=== PATIENT | female | born 1995 | race Caucasian/White ===

== ENCOUNTER 2019-04-11 15:03 | Outpatient (RCR) | payer OTHER, SELFPAY ==
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
--- NOTE | 2019-04-25 13:06 | PCPTNOTE ---
patient called and cancelled appt today. YURY
== END 2019-04-28 17:00 | disposition home or self-care (01) ==
LOC: CHSPT 15:03
DX: S32.424 Nondisplaced fracture of posterior wall of right acetabulum (principal)
CPT/HCPCS: 97014; 97110; 97161; 97530; G0283

== ENCOUNTER 2021-07-01 14:08 | Emergency (ER) | payer OTHER, SELFPAY ==
--- NOTE | ~2021-07-01 | XR_ITS ---
EXAM: XR abdomen/kub 1V HISTORY: constipation x 3 wks COMPARISON: None available FINDINGS: Clear lung bases. Normal bowel gas pattern. No organomegaly. No abnormal abdominal calcifi cation. Regional bones and soft tissues normal for age. IMPRESSION: No radiographic evidence of obstruction or ileus. Reviewed, dictated and finalized at location K.
--- NOTE | ~2021-07-01 | XR_ITS ---
EXAMINATION: XR chest 1V portable Exam Date/Time: 07/01/2021 16:45 CDT CLINICAL HISTORY: cough with SOB x 3 wks Comparison: None available. RESULT: Lines, tubes, and devices: None. Lungs and pleura: Clear. Cardiomediastinal silhouette: Normal cardiomediastinal silhouette. Other: No acute osseous or upper abdominal finding. IMPRESSION: No acute cardiopulmonary process Reviewed, dictated and finalized at location K.
[2021-07-01 14:19] VITALS: BP 120/76; PULSE 112; RESP 16; TEMP 36.6; O2SAT 100
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
[2021-07-01 14:47] LABS: Basophils Absolute Auto 0.05 K/mm3 (0.00-0.10); Basophils Percent Auto 0.9 % (0.0-1.0); Eosinophils Absolute Auto 0.05 K/mm3 (0.02-0.50); Eosinophils Percent Auto 0.9 % (1.0-6.0); Hematocrit 31.9 % (35.0-49.0); Hemoglobin 9.9 g/dL (12.0-15.0); Immature Granulocyte Absolute 0.02 K/mm3 (0.00-0.00); Immature Granulocyte Percent A 0.4 % (0.0-0.0); Lymphocytes Absolute Auto 2.08 K/mm3 (1.10-4.50); Lymphocytes Percent Auto 38.4 % (18.0-42.0); Mean Corpuscular Hemoglobin 25.3 pg (27.0-31.0); Mean Corpuscular Volume 81.4 fL (78.0-102.0); Mean Platelet Volume 8.3 fl (9.2-11.8); Monocytes Absolute Auto 0.31 K/mm3 (0.10-0.90); Monocytes Percent Auto 5.7 % (2.0-11.0); Neutrophils Absolute Auto 2.9 K/mm3 (1.7-7.2); Neutrophils Percent Auto 53.7 % (50.0-70.0); Platelet Count Result 404 K/mm3 (150-420); Red Blood Count 3.92 M/mm3 (4.20-5.40); Red Cell Distribution Width 19.1 % (11.6-14.4); White Blood Count 5.4 K/mm3 (4.8-10.8)
[2021-07-01 15:00] LABS: Prothrombin Time 10.9 Seconds (9.50-12.10)
[2021-07-01 15:08] LABS: Lactic Acid Reflex 1.3 mmol/L (0.4-2.0)
[2021-07-01 15:12] LABS: Alanine Aminotransferase 29 U/L (14-59); Albumin Level 3.3 g/dL (3.4-5.0); Alkaline Phosphatase 142 U/L (46-116); Anion Gap 5 mmol/L (8-16); Aspartate Amino Transferase 24 U/L (15-37); Bilirubin,Total 0.4 mg/dL (0.00-1.00); Blood Urea Nitrogen 16 mg/dL (7-18); Calcium 8.5 mg/dL (8.5-10.1); Carbon Dioxide 30 mmol/L (21-32); Chloride 102 mmol/L (98-108); Estimated Glomerular Filt Rate > 60; Glucose 110 mg/dL (70-99); Lipase 117 U/L (73-393); Osmolality Calculated 286 mOsm/kg (285-295); Potassium 3.9 mmol/L (3.5-5.1); Sodium 137 mmol/L (136-145); Total Protein 7.3 g/dL (6.4-8.2)
[2021-07-01] MEDS: BISACODYL 10 MG SUPPOSITORY RECTAL (15:12)
--- NOTE | 2021-07-01 15:53 | PC.NURSE ---
patient back in room from bathroom. patient successfully had large bowl movement
[2021-07-01 16:08] LABS: Pregnancy On Board Control Positive; Urine Pregnancy Test Negative
[2021-07-01 17:22] VITALS: BP 122/81; PULSE 96; RESP 16; TEMP 36.9; O2SAT 100
== END 2021-07-01 17:25 | disposition home or self-care (01) ==
PROVIDERS: Emergency Provider Internal Medicine Critical Care Medicine
DX: R53.1 Weakness (principal); F41.9 Anxiety disorder, unspecified; D64.9 Anemia, unspecified
CPT/HCPCS: 36415; 71045; 74018; 80053; 81025; 83605; 83690; 84443; 84484; 85025; 85610; 99284; A9270

== ENCOUNTER 2021-07-20 23:26 | Emergency (ER) | payer OTHER, SELFPAY ==
[2021-07-20 23:34] VITALS: BP 119/77; PULSE 114; RESP 16; TEMP 37; O2SAT 98
[2021-07-21 00:29] LABS: Bilirubin Urine Negative (Negative); Color Urine Yellow (Yellow); Glucose Urine UA Negative (Negative); Ketones Urine Negative (Negative); Leukocyte Esterase Ur 1+ (Negative); Nitrate Urine Negative (Negative); Protein Urine Negative (Negative); Specific Grav Ur 1.025 (1.010-1.020); pH Urine 6.5 (5.0-8.0)
--- NOTE | 2021-07-21 00:35 | ED.GENADULT ---
HPI - General Adult General Chief complaint: Unspecified Stated complaint: Vaginal Discharge Time Seen by Provider: 07/20/21 23:30 Source: patient and RN notes reviewed Mode of arrival: ambulatory Limitations: no limitations History of Present Illness complaint: vaginal d/c. pt is concerned about GC and Chlamydia exposure. Onset (ago): day(s) (4) Location: pelvis Radiation: non-radiation Severity: mild Severity scale (1-10): 3 Quality: other (chronic back pain. no acute fever) Pain Consistency: constant Relieving factors: none Exacerbating factors: none Treatments prior to arrival: none Related Data Home Medications Medication Instructions Recorded Confirmed naloxone 4 mg/actuation nasal 4 mg intranasal DAILY 07/20/21 07/20/21 spray (Narcan) Allergies Allergy/AdvReac Type Severity Reaction Status Date / Time Penicillins Allergy Unknown unknown Verified 07/20/21 23:39 Review of Systems Review of Systems: All systems reviewed & are unremarkable except as noted in HPI and below PMFSH Past Medical History Medical History BV (bacterial vaginosis) Opiate addiction STD exposure UTI (urinary tract infection) Exam Const: General: cooperative and no acute distress Nutritional Appearance: average body habitus Orientation/consciousness: patient oriented x3 Limitations: no limitations HENMT: Head: normal to inspection, normocephalic and atraumatic Ears: hearing grossly normal bilaterally, external ears normal and TM's normal bilaterally General nose exam: Normal external nose present and Normal nares present Face and sinus: normal facial exam and sinuses nontender Mouth: Yes Normal oral and palatal mucosa present, Yes lip normal, Yes tongue normal, Yes oropharynx normal and Yes moist mucous membranes Throat: posterior oropharynx normal Eyes: General: appearance normal, both eyes and all related structures Periorbital: periorbital findings normal Eyelids: eyelids normal Conjunctivae: conjunctivae normal Sclera: sclerae normal Cornea: corneas normal Pupils: Equal, round and reactive pupils present and Pupils normal by confrontation EOM: EOMs intact bilaterally Neck: Neck: normal visual inspection, full ROM, no lymphadenopathy and no meningeal signs Chest: Chest palpation & inspection: normal inspection of the chest Resp: Effort & Inspection: normal respiratory effort and able to speak in complete sentences Auscultation: clear to auscultation bilaterally Cardio: Jugular venous distension: no JVD Rate: regular rate Rhythm: regular rhythm Peripheral pulses: Peripheral pulses 2+ throughout GI: Inspection: normal to inspection GI Palp: No abdominal tenderness and Yes Soft to palpation Auscultation: normal bowel sounds Back/Spine/Pelvis: Back: no CVA tenderness Cervical Spine: normal cervical lordosis and cervical ROM normal Thoracic/Lumbar Spine: thoraco-lumbar ROM normal Pelvis: no pain with anterior-posterior compression Skin: General skin exam: normal color, no rashes or lesions noted and turgor normal Rashes: no rashes Wounds: no wounds Hair: normal Nails: normal Neuro: General: oriented to person and patient oriented x3 Cranial nerves: Yes CN's II-XII intact bilaterally, Yes Facial sensation intact/muscles of mastication intact, Yes Intact sense of smell present, Yes Equal, round and reactive pupils present, Yes Normal accommodation reflex present, Yes Bilaterally intact EOM present, Yes Normal facial strength present, Yes Normal gag reflex present and Yes Normal hearing present Cognition (Neuro): normal cognition Speech: normal speech Gait exam (Neuro): Normal gait present Motor exam (neuro): 5/5 motor strength present throughout Sensory Exam: normal sensation Comatose Patient: corneal reflex present Extrem: General: full ROM and capillary refill normal Psych: Appearance: grossly normal and well kempt Mental Status: mental status gr
[2021-07-21 00:36] LABS: Add Urine Microscopic? YES; Appearance Urine Turbid (Clear); Bacteria Urine 4+ /hpf; Blood Urine Trace-Intact (Negative); RBC Urine 0-2 /hpf (0-2)
[2021-07-21] MEDS: ACETAMINOPHEN 325 MG TABLET 650 MG PO (01:06)
[2021-07-21] MEDS: LIDOCAINE HCL 2% PF INJ 5 ML VIAL (01:06)
[2021-07-21] MEDS: cefTRIAXone 1 GM VIAL IM (01:06)
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
== END 2021-07-21 01:29 | disposition home or self-care (01) ==
PROVIDERS: Emergency Provider Emergency Medicine
DX: N39.0 Urinary tract infection, site not specified (principal); Z20.2 Contact with and (suspected) exposure to infections with a predominantly sexual mode of transmission; N76.0 Acute vaginitis
CPT/HCPCS: 81001; 87491; 87591; 96372; 99283; A9270; J0696

== ENCOUNTER 2021-08-31 23:38 | Emergency (ER) | payer OTHER, SELFPAY ==
--- NOTE | ~2021-08-31 | XR_ITS ---
EXAMINATION: XR forearm LT 2V DATE: 09/01/2021 01:16 INDICATION: Left forearm laceration. TECHNIQUE: 2 views of left forearm were obtained. COMPARISON: None. FINDINGS: Bone alignment is normal. No fracture. Joint spaces are well maintained. Bandage material i s noted around the forearm. There is soft tissue swelling of the hand. IMPRESSION: 1. No fracture or radiopaque foreign body. Reviewed, dictated and finalized at location A.
[2021-08-31 23:53] VITALS: BP 124/99; PULSE 129; RESP 22; TEMP 36.6; O2SAT 98
[2021-09-01] MEDS: LIDOCAINE HCL 2% PF INJ 5 ML VIAL INFILTRATE (00:04)
[2021-09-01] MEDS: cefTRIAXone 1 GM, LIDOCAINE HCL 1% LOCAL INJ 2.1 ML IM (01:37)
[2021-09-01] MEDS: ACETAMINOPHEN 325 MG TABLET 650 MG PO (01:38)
--- NOTE | 2021-09-01 01:49 | ED.UPPEXIN ---
HPI - Extremity Injury (Upper) General Chief Complaint: Extremity Injury, Lower Stated Complaint: arm cut Time Seen by Provider: 08/31/21 23:42 Source: patient and RN notes reviewed Mode of arrival: ambulatory Limitations: no limitations History of Present Illness complaint: injury to: left and forearm (10 cm laceration.) Onset (ago): hour(s) (1) Other Extremity Injury: Left: forearm Other injuries: none Place: home Severity: moderate Severity scale (1-10): 6 Relieving factors: none Exacerbating factors: movement of extremity Context: laceration Associated symptoms: denies other symptoms Treatments prior to arrival: bandage Related Data Allergies Allergy/AdvReac Type Severity Reaction Status Date / Time Penicillins Allergy Unknown unknown Verified 08/31/21 23:51 Review of Systems Review of Systems: All systems reviewed & are unremarkable except as noted in HPI and below Constitutional: Constitutional: Reports no additional constitutional complaints Eyes: Eyes: Reports no additional eye complaints ENT: Reports system reviewed and no additional complaints, except as documented Cardiovascular: Cardiovascular: Reports no additional cardiovascular complaints Respiratory: Respiratory: Reports no additional respiratory complaints Gastrointestinal: Gastrointestinal: Reports no additional gastrointestinal complaints Genitourinary: Genitourinary: Reports no additional female genitourinary complaints Musculoskeletal: Musculoskeletal: Reports no additional musculoskeletal complaints Integumentary/Breasts: Skin/Breast: Reports system reviewed and no additional complaints, except as docu Neurologic: Reports system reviewed and no additional complaints, except as documented Psychiatric: Psychiatric: Reports no additional psychiatric complaints Endocrine: Endocrine: Reports no additional endocrine complaints Hematologic/Lymphatic: Hematologic/Lymphatic: Reports no additional hematologic/lymphatic complaints Allergic/Immunologic: Allergic/Immunologic: Reports no additional allergic/immunologic complaints PMFSH Past Medical History Medical History BV (bacterial vaginosis) Laceration of forearm, left Opiate addiction STD exposure UTI (urinary tract infection) Exam Const: General: healthy appearing and no acute distress Nutritional Appearance: well nourished Orientation/consciousness: patient oriented x3 Limitations: no limitations HENMT: Head: normal to inspection Ears: external ears normal, TM's normal bilaterally and EAC's normal General nose exam: Normal external nose present and Normal nares present Face and sinus: normal facial exam and sinuses nontender Mouth: Yes Normal oral and palatal mucosa present and Yes moist mucous membranes Teeth and gingiva: dentition normal Throat: posterior oropharynx normal Eyes: Conjunctivae: conjunctivae normal Pupils: Equal, round and reactive pupils present EOM: EOMs intact bilaterally Neck: Neck: normal visual inspection, no lymphadenopathy and no meningeal signs Chest: Chest palpation & inspection: normal inspection of the chest Resp: Effort & Inspection: normal respiratory effort Auscultation: clear to auscultation bilaterally Cardio: Rate: regular rate Rhythm: regular rhythm GI: GI Palp: Yes Soft to palpation and No Tenderness to palpation present (GI) Auscultation: normal bowel sounds : General: Yes bladder normal to palpation and Yes no CVA tenderness Bimanual exam- vagina & uterus: bladder normal to palpation Back/Spine/Pelvis: Back: no CVA tenderness Skin: General skin exam: normal color Rashes: no rashes Wounds: no wounds Neuro: General: patient oriented x3, moves all extremities, no meningeal signs, no focal motor deficits and CN's II-XI intact bilaterally Cranial nerves: Yes Equal, round and reactive pupils present and Yes Nystagmus not present Speech: normal speech Gait exam (Neuro)
[2021-09-01 02:39] VITALS: BP 117/81; PULSE 91; RESP 18; O2SAT 98
== END 2021-09-01 02:40 | disposition home or self-care (01) ==
PROVIDERS: Emergency Provider Emergency Medicine
DX: S51.812A Laceration without foreign body of left forearm, initial encounter (principal); W45.8XXA Other foreign body or object entering through skin, initial encounter
CPT/HCPCS: 12004; 73090; 96372; 99283; A9270; J0696

== ENCOUNTER 2022-06-05 17:23 | Emergency (ER) | payer OTHER, SELFPAY ==
[2022-06-05 17:23] VITALS: BP 121/90; PULSE 100; RESP 20; TEMP 36.6; O2SAT 97
[2022-06-05 17:30] VITALS: BP 132/103
[2022-06-05] MEDS: MAGNESIUM SULF 4 GM/WATER100ML 4 GM/100 ML BAG IVPB (17:50)
[2022-06-05 17:58] LABS: Basophils Absolute Auto 0.02 K/mm3 (0.00-0.10); Basophils Percent Auto 0.4 % (0.0-1.0); Eosinophils Absolute Auto 0.18 K/mm3 (0.02-0.50); Eosinophils Percent Auto 3.3 % (1.0-6.0); Hematocrit 29.1 % (35.0-49.0); Hemoglobin 9.5 g/dL (12.0-15.0); Immature Granulocyte Absolute 0.06 K/mm3 (0.00-0.00); Immature Granulocyte Percent A 1.1 % (0.0-0.0); Lymphocytes Absolute Auto 1.53 K/mm3 (1.10-4.50); Lymphocytes Percent Auto 28.4 % (18.0-42.0); Mean Corpuscular HGB Conc 32.6 g/dL (32.0-36.0); Mean Corpuscular Hemoglobin 26.2 pg (27.0-31.0); Mean Corpuscular Volume 80.4 fL (78.0-102.0); Mean Platelet Volume 11.9 fl (9.2-11.8); Monocytes Absolute Auto 0.37 K/mm3 (0.10-0.90); Monocytes Percent Auto 6.9 % (2.0-11.0); Neutrophils Absolute Auto 3.2 K/mm3 (1.7-7.2); Neutrophils Percent Auto 59.9 % (50.0-70.0); Nucleated Red Blood Cells Absolute Auto 0.04 K/mm3 (0.00-0.00); Nucleated Red Blood Cells Perc 0.7 % (0-0.0); Platelet Count Result 149 K/mm3 (150-420); Red Blood Count 3.62 M/mm3 (4.20-5.40); Red Cell Distribution Width 14.6 % (11.6-14.4); White Blood Count 5.4 K/mm3 (4.8-10.8)
[2022-06-05 18:13] LABS: INR 0.9; Prothrombin Time 10.4 Seconds (9.50-12.10)
[2022-06-05 18:14] LABS: Alanine Aminotransferase 22 U/L (14-59); Albumin Level 2.2 g/dL (3.4-5.0); Alkaline Phosphatase 326 U/L (46-116); Anion Gap 10 mmol/L (8-16); Aspartate Amino Transferase 23 U/L (15-37); Bilirubin,Total 0.4 mg/dL (0.00-1.00); Blood Urea Nitrogen 9 mg/dL (7-18); Calcium 7.8 mg/dL (8.5-10.1); Carbon Dioxide 22 mmol/L (21-32); Chloride 105 mmol/L (98-108); Estimated CRCL calculation 112 ml/min; Estimated Glomerular Filt Rate > 60; Glucose 76 mg/dL (70-99); Lactate Dehydrogenase 224 U/L (81-234); Magnesium 1.4 mg/dL (1.8-2.4); Osmolality Calculated 281 mOsm/kg (285-295); Potassium 3.9 mmol/L (3.5-5.1); Sodium 137 mmol/L (136-145); Total Protein 6.2 g/dL (6.4-8.2)
[2022-06-05 18:16] LABS: Ethanol < 3 mg/dL (0-6)
[2022-06-05 18:34] VITALS: BP 113/79; PULSE 85; RESP 18; TEMP 36.7; O2SAT 97
--- NOTE | 2022-06-05 18:55 | ED.GENADULT ---
HPI - General Adult General Chief complaint: OB/Uterine Contractions Stated complaint: , spotting History of Present Illness HPI narrative: 27yo at approximately 35 weeks gestational age, h/o prior high blood pressure during , unknown care as pt says she went to an appointment at [facility] but cannot name doctor she saw or what tests or treatments might have been given, presents with concern for severe swelling in both legs and in her left arm, with BP 140/100 on arrival. no headache or abdominal pain. +vaginal bloody mucous discharge today. No fever, dysuria. Still feels baby moving. FHR 150 bpm on our ultrasound. Quickly given Magnesium 4g bolus and transferred to [facility] Ob intake via ambulance, accepted by Dr. Stephens. Related Data Home Medications Medication Instructions Recorded Confirmed vits no.126-ferrous fum 1 tablet PO DAILY 06/05/22 06/05/22 28 mg iron-folic acid 800 mcg tablet (Classic ) Allergies Allergy/AdvReac Type Severity Reaction Status Date / Time Penicillins Allergy Unknown unknown Verified 08/31/21 23:51 Review of Systems Review of Systems: All systems reviewed & are unremarkable except as noted in HPI and below Constitutional: Constitutional: Denies chills and Denies fever(s) Cardiovascular: Cardiovascular: Denies chest pain PMFSH Past Medical History Medical History BV (bacterial vaginosis) Laceration of forearm, left Opiate addiction STD exposure UTI (urinary tract infection) Exam Const: General: no acute distress and alert Nutritional Appearance: well nourished Orientation/consciousness: patient oriented x3 HENMT: Other: mucous membranes moist Eyes: Conjunctivae: conjunctivae normal Pupils: Equal, round and reactive pupils present Neck: Neck: normal visual inspection and meningismus present Resp: Effort & Inspection: normal respiratory effort and not labored Auscultation: clear to auscultation bilaterally Cardio: Rate: regular rate Rhythm: regular rhythm Heart sounds: no murmurs GI: Other: gravid, nontender Skin: General skin exam: normal color and no pallor Neuro: General: patient oriented x3 Extrem: General: edema Other: edema bilateral legs, also edema to left arm and hand Course Vital Signs Vital signs: Vital Signs Temperature 36.6 C 06/05/22 17:23 Pulse Rate 100 06/05/22 17:23 Respiratory Rate 20 06/05/22 17:23 Blood Pressure 121/90 06/05/22 17:23 Pulse Oximetry 97 06/05/22 17:23 Oxygen Delivery Room Air 06/05/22 17:23 Temperature 36.7 C 06/05/22 18:34 Pulse Rate 85 06/05/22 18:34 Respiratory Rate 18 06/05/22 18:34 Blood Pressure 113/79 06/05/22 18:34 Pulse Oximetry 97 06/05/22 18:34 Oxygen Delivery Room Air 06/05/22 18:34 Medical Decision Making MDM Narrative Medical decision making narrative: third trimester, no care, lots of social history risk factors for worse outcomes, hypertensive with severe edema needs empiric treatment for pre-eclampsia, emergent transfer to Ob Medical Records Medical records reviewed: Yes I reviewed the external patient's medical records. Vital Signs Vital Signs: Vital Signs Temperature 36.6 C 06/05/22 17:23 Pulse Rate 100 06/05/22 17:23 Respiratory Rate 20 06/05/22 17:23 Blood Pressure 121/90 06/05/22 17:23 Pulse Oximetry 97 06/05/22 17:23 Oxygen Delivery Room Air 06/05/22 17:23 Temperature 36.7 C 06/05/22 18:34 Pulse Rate 85 06/05/22 18:34 Respiratory Rate 18 06/05/22 18:34 Blood Pressure 113/79 06/05/22 18:34 Pulse Oximetry 97 06/05/22 18:34 Oxygen Delivery Room Air 06/05/22 18:34 Lab Data Lab results reviewed: Yes I reviewed the patient's lab results. 06/05/22 17:53 06/05/22 17:54 Labs: Lab Results 06/05/22 06/05/22 06/05/22 Range/Units 17:53 1
--- NOTE | 2022-06-05 19:12 | PC.NURSE ---
1850 magnesium completed, no complaint of shortness of breath, no chest pain, no spotting or vaginal discharge while in the er. report to [facility] ems staff, pt loaded to ems cot. pt stable. heart tones were not reassessed. update to kristyn dockery at [facility].
== END 2022-06-05 19:05 | disposition short-term general hospital (02) ==
PROVIDERS: Emergency Provider Emergency Medicine
DX: O14.93 Unspecified pre-eclampsia, third trimester (principal); Z3A.35 35 weeks gestation of pregnancy
CPT/HCPCS: 36415; 80053; 80307; 83615; 83735; 85025; 85610; 96365; 99285; J3475

== ENCOUNTER 2022-06-05 19:37 | Observation (INO) | payer OTHER, SELFPAY ==
--- NOTE | ~2022-06-05 | US_ITS ---
EXAMINATION: US OB follow up w [facility] DATE: 06/05/2022 20:34 INDICATION: growth and amniotic fluid index assessment and biophysical profile during third tri mester TECHNIQUE: Real-time pelvic ultrasound was performed. The interpreting radiologist was not present fo r the study. COMPARISON: None. FINDINGS: There is a single living fetus in transverse lie. The placenta is anterior/fundal. heart rate i s 131 beats per minute (bpm). The amniotic fluid index is 13.4 cm which is normal (normal range: 7.2 cm to 22.6 cm). Biophysical profile performed by the technologist: breathing (30 sec sustained breathing in 30 minutes): 0 out of 2 movement (3 gross body movements in 30 minutes): 2 out of 2 tone (one episode of jcuuhfs-pakbhktba-baucoap limb movement): 2 out of 2 Amniotic fluid pocket (2 cm): 2 out of 2 Total score: 6 out of 8 The following biometric data were obtained: Biparietal diameter (BPD): 9.3 cm; head circumference (HC): 33.9 cm; abdominal circumference (AC): 34 .5 cm; femur length (FL): 7.3 cm. These measurements are concordant. Estimated weight is 3438 g +/- 515 g, which correlates with the 50th percentile when 06/12/2022 is used as estimated date of delivery. As single measurements, these parameters are each equal to the following estimated gestational ages w ith ranges of +/- 2 standard deviations: BPD: 37 weeks 5 days +/- 3 weeks 1 days. HC: 38 weeks 6 days +/- 2 weeks 5 days. AC: 38 weeks 5 days +/- 3 weeks 0 days. FL: 37 weeks 1 days +/- 3 weeks 1 days. estimated gestational age based solely on measurements from this exam is 38 weeks 1 days +/- 2 weeks 5 days. IMPRESSION: 1. Single living fetus in transverse lie. 2. Biophysical profile 6 out of 8. No points for sustained breathing. 3. Normal amniotic fluid index. 4. Estimated weight is 3438 g +/- 515 g, which correlates with the 50th percentile when 06/13/19 23 is used as estimated date of delivery. Reviewed, dictated and finalized at location F. IMPRESSION: 1. Single living fetus in transverse lie. 2. Biophysical profile 6 out of 8. No points for sustained breathing. 3. Normal amniotic fluid index. 4. Estimated weight is 3438 g +/- 515 g, which correlates with the 50th p ercentile when 06/12/2022 is used as estimated date of delivery.
[2022-06-05 19:48] VITALS: BP 131/94; PULSE 87
[2022-06-05 20:01] VITALS: BP 120/76; PULSE 85
[2022-06-05 20:27] VITALS: BP 120/86; PULSE 82
[2022-06-05 20:31] VITALS: BP 112/76; PULSE 145
[2022-06-05 21:15] VITALS: BMI 29.0
[2022-06-05 21:29] LABS: Creatinine Urine 65.4 mg/dL; Total Protein Urine Random 18 mg/dL; Ur Ttl Prot Creatinine Ratio 0.28 mg/mg (0-0.20)
[2022-06-05 21:39] LABS: Appearance Urine Clear (Clear); Bacteria Urine None Seen /hpf; Bilirubin Urine Negative (Negative); Blood Urine 2+ (Negative); Color Urine Yellow (Yellow); Glucose Urine UA Negative (Negative); Ketones Urine 1+ mg/dL (Negative); Leukocyte Esterase Ur 1+ LEU/UL (NEGATIVE); Need Manual Microscopic Reviewed; Nitrate Urine Negative (Negative); Non Pathogenic Casts 0-2; Protein Urine Negative (Negative); RBC Urine 0-2 /hpf (0-2); Specific Grav Ur 1.011 (1.001-1.035); Squamous Epithelial Cell Urine Occasional /hpf (Few); WBC Urine 0-5 /hpf (0-3)
[2022-06-05 21:42] LABS: Add Urine Microscopic? YES
--- NOTE | 2022-06-05 21:52 | PM.OBTRLD ---
OB - Triage/Final Diagnosis Visit Information Date of evaluation: 06/05/22 Reason for evaluation: other (Spotting) Comments/Additional reasons for admission: I have assessed the risk for this patient, Nadia Rajan, and determined that she would benefit from observation care. Evaluation Laboratory results: Laboratory Tests 06/05/22 06/05/22 21:10 21:10 Urine Color Yellow Urine Appearance Clear Urine pH 6.0 Ur Specific [place] 1.011 Urine Protein Negative Urine Glucose (UA) Negative Urine Ketones 1+ H Ur Blood (Man) 2+ H Urine Nitrate Negative Urine Bilirubin Negative Urine Urobilinogen 1.0 Ur Leukocyte Esterase 1+ H Add Ur Microanalysis Reviewed Urine RBC 0-2 Urine WBC 0-5 Ur Squamous Epith Cells Occasional Urine Bacteria None seen Urine Casts 0-2 U Random Total Protein 18 Urine Creatinine 65.4 Protein/Creat Ratio 2 0.28 H Vital signs: Vital Signs - 24 hr 06/05/22 19:48 06/05/22 20:01 06/05/22 20:27 Pulse Rate 87 85 82 Blood Pressure 131/94 H 120/76 120/86 06/05/22 20:31 Pulse Rate 145 H Blood Pressure 112/76
[2022-06-05 21:54] LABS: Barbiturate Screen Urine Negative (Negative); Benzodiazepines Screen Urine Negative (Negative)
[2022-06-05 22:05] LABS: Cannabinoid Screen Urine Negative (Negative); Cocaine Screen Urine Negative (Negative); Methadone Screen Urine Negative (Negative); Opiate Screen Urine Negative (Negative); Phencyclidine Screen Urine Negative (Negative)
--- NOTE | 2022-06-05 22:11 | PC.NURSE ---
Pt educated on importance of following up with an OB provider thiago. Pt verbalizes understanding of importance and states she will be calling Dr. Willams office to make an appointment.
[2022-06-05 22:21] LABS: Amphetamine Screen Urine Positive (Negative)
== END 2022-06-05 22:42 | disposition home or self-care (01) ==
PROVIDERS: Admitting Provider Obstetrics & Gynecology; Visit Provider Obstetrics & Gynecology
DX: O26.859 Spotting complicating pregnancy, unspecified trimester (principal); Z3A.00 Weeks of gestation of pregnancy not specified
CPT/HCPCS: 76816; 76819; 80307; 81001; 82570; 84156; 87077; 87086; 87088; 87186; G0378; G0379

== ENCOUNTER 2022-06-06 18:35 | Inpatient (IN) | payer OTHER, SELFPAY ==
[2022-06-06] VITALS (57 sets, daily range): BP systolic 121–154; BP diastolic 76–96; PULSE 50–87; RESP 14–16; TEMP 36–36.6; O2SAT 99–100; BMI 29.2
--- NOTE | 2022-06-06 18:46 | P.PNAN_ITS ---
Anes - Eval Pre Procedure Procedure: CS Date/Time: 06/06/22 18:46 Pre Op Diagnosis: leaking Patient Data Age: 27 Gender: F Height: Weight: Allergies Allergy/AdvReac Type Severity Reaction Status Date / Time Penicillins Allergy Unknown unknown Verified 08/31/21 23:51 Home Medications Medication Instructions Recorded Confirmed Type vits no.126-ferrous fum 1 tablet PO DAILY 06/05/22 06/05/22 History 28 mg iron-folic acid 800 mcg tablet (Classic ) Patient hx anesthesia problems: none Family hx anesthesia problems: none Results Review: All pre-operative results and documents have been reviewed as part of the pre- operative evaluation. [facility] Past Medical History Medical History BV (bacterial vaginosis) Laceration of forearm, left Opiate addiction STD exposure UTI (urinary tract infection) Exam Day of Procedure 06/06/22 18:46 Patient weight: overweight Heart: regular rate and rhythm Lungs: normal air movement Airway: Mallampati scale class II Neurological: alert and oriented
--- NOTE | 2022-06-06 18:56 | PM.IMHP ---
H&P: HPI History of Present Illness Date/Time: 06/06/22 18:56 Chief Complaint: ruptured membranes at term Narrative: sh 27-year-old 3 para 2 suspected to be at term by 15 week ultrasound through the ER with virtually no care who is admitted with ruptured membranes and an abnormal lie. She is offered a low-transverse section. Risks and benefits reviewed. She has had some mildly elevated blood pressure when she was seen yesterday but which resolved. She did not by blood pressure with previous pregnancies PMFSH Past Medical History Medical History BV (bacterial vaginosis) Laceration of forearm, left Opiate addiction STD exposure UTI (urinary tract infection) Meds Home Medications and Allergies Home Medications Medication Instructions Recorded Confirmed Type vits no.126-ferrous fum 1 tablet PO DAILY 06/05/22 06/05/22 History 28 mg iron-folic acid 800 mcg tablet (Classic ) Allergies Allergy/AdvReac Type Severity Reaction Status Date / Time Penicillins Allergy Unknown unknown Verified 08/31/21 23:51 Vital Signs Vital Signs - 24 hr 06/06/22 18:54 Pulse Rate 86 Blood Pressure 130/76 Exam Const: General: cooperative, healthy appearing, comfortable and average body habitus Orientation/consciousness: oriented to person, oriented to place and oriented to time HENMT: Head: normal to inspection Resp: Effort & Inspection: normal respiratory effort Cardio: Rate: regular rate Rhythm: regular rhythm Heart sounds: S1 normal heart sound present and S2 normal heart sound present GI: Inspection: normal to inspection ( gravid soft uterus) : Speculum Exam - Cervix: normal appearance of the cervix ( clear fluid seen. heart tones reassuring small part palpated) Assessment and Plan Assessment and plan (1) Term : Code(s): Z34.90 - Encounter for supervision of normal , unspecified, unspecified trimester Status: Acute (2) No care in current : Code(s): O09.30 - Supervision of with insufficient care, unspecified trimester Status: Acute (3) Abnormal lie, antepartum: Code(s): O32.8XX0 - Maternal care for other malpresentation of fetus, not applicable or unspecified Status: Acute (4) Rupture of membranes with clear amniotic fluid: Status: Acute Plan primary low-transverse section drug screen is performed.
--- NOTE | 2022-06-06 18:59 | WPDHPUPDATE1 ---
History and Physical Update Update Date/Time: 06/06/22 18:59 History and Physical has been reviewed, including an updated exam of the patient. There are NO changes in the patient's condition. Risks, benefits, and alternatives have been discussed and questions answered. Patient agrees to proceed with procedure.
[2022-06-06 19:14] LABS: Basophils Percent Auto 0.3 % (0.2-1.2); Eosinophils Absolute Auto 0.1 K/mm3 (0-0.3); Eosinophils Percent Auto 1.6 % (0-4.4); Hematocrit 33.4 % (37.0-47.0); Hemoglobin 10.5 g/dL (12.0-15.0); Immature Granulocyte Absolute 0.06 K/mm3 (0.00-0.031); Immature Granulocyte Percent A 0.7 % (0-0.5); Lymphocytes Absolute Auto 1.74 K/mm3 (0.9-3.2); Lymphocytes Percent Auto 19.9 % (18.3-44.2); Mean Corpuscular HGB Conc 31.4 g/dl (32-36); Mean Corpuscular Volume 82.7 fl (80-100); Mean Platelet Volume 11.7 fl (7.4-10.4); Monocytes Absolute Auto 0.4 K/mm3 (0.1-0.6); Monocytes Percent Auto 4.9 % (2.6-8.5); Neutrophils Absolute Auto 6.4 K/mm3 (1.3-6.7); Neutrophils Percent Auto 72.6 % (45.5-73.1); Nucleated Red Blood Cells Perc 0.2 % (0.0-0.2); Platelet Count Result 161 k/mm3 (150-375); Red Blood Count 4.04 M/mm3 (4.2-5.4); Red Cell Distribution Width 14.9 % (11.5-14.5); White Blood Count 8.8 K/mm3 (4.5-10.0)
[2022-06-06 19:26] LABS: Alanine Aminotransferase 21 U/L (6-35); Albumin Level 3.6 g/dL (3.5-5.1); Alkaline Phosphatase 394 U/L (38-126); Anion Gap 5 mmol/L (8-16); Aspartate Amino Transferase 31 U/L (14-36); Bilirubin,Total 0.6 mg/dL (0.2-1.3); Blood Urea Nitrogen 7 mg/dL (7-17); Calcium 7.9 mg/dL (8.4-10.2); Carbon Dioxide 23 mmol/L (22-30); Chloride 106 mmol/L (98-107); Estimated CRCL calculation 130 ml/min; Estimated Glomerular Filt Rate > 60; Glucose 89 mg/dL (65-110); Potassium 4.1 mmol/L (3.4-5.0); Sodium 134 mmol/L (137-145)
[2022-06-06 19:41] LABS: Barbiturate Screen Urine Negative (Negative); Benzodiazepines Screen Urine Negative (Negative)
[2022-06-06 19:47] LABS: Cannabinoid Screen Urine Negative (Negative); Cocaine Screen Urine Negative (Negative); Methadone Screen Urine Negative (Negative); Phencyclidine Screen Urine Negative (Negative)
[2022-06-06 19:58] LABS: Opiate Screen Urine Negative (Negative)
[2022-06-06 20:02] LABS: HIV 1/2 Ab P24 Ag Result Negative (Negative)
--- NOTE | 2022-06-06 20:02 | P.OP_ITS ---
Procedure Note - Detailed Date of Procedure 06/06/22 Pre-op Diagnosis leaking/ term /malpresentation Post-op Diagnosis Same Procedure Performed primary low-transverse section Surgeon Wes Galloway MD Anesthesia Spinal Indications 27-year-old female at term with virtually no care and ruptured membranes with malpresentation Findings male breech presentation Description of Procedure patient was taken back prepped draped in normal sterile fashion placed in the supine position. Under excellent spinal anesthetic the abdomen was entered in Pfannenstiel fashion progressive layers to fascia. Fascia incised midline number vast fashion bilaterally underlying muscles sharply dissected. Parietal peritoneum would like a clamps and then sharp dissection carried superiorly and inferiorly dome bladder. Bladder blade formed bladder blade returned. A low- transverse incision made the breech was delivered to the maternal left. The legs were swept medially in the arm swept medially the head delivered in a flexed position. Cord clamped x2 and cut and passed off the table with excellent cry. Placenta delivered intact manually. Uterus delivered on the abdomen wrapped in moist towel. After assuring no membranes or debris remained in the uterus, the uterus was closed continuous running 0 Vicryl from lateral edge to lateral edge followed by an imbricating running locking 0 Vicryl from lateral edge to lateral edge. Hemostasis was assured [place] term was placed on the raw surface areas. Uterus returned the abdomen after inspecting the ovaries and tubes appearing within normal limits. The laps removed and accounted for. The fascia closed with continuous running 0 Vicryl from lateral edge to midline bilaterally. Irrigation subcutaneous layer and the skin closed with 4 Monocryl and glue. Blood loss was 515 for QBL. All sponge, needle, instrument counts were correct. There were no immediate complications Estimated Blood Loss 515 Drains No Packing No Pathology None sent Complications No immediate complications Condition Stable Disposition PACU
[2022-06-06 20:07] LABS: Rubella IgG Antibody 8.9 IU/ML
[2022-06-06 20:08] LABS: Hepatitis B Surface Antigen Negative (Negative)
[2022-06-06 20:20] LABS: Amphetamine Screen Urine Positive (Negative)
[2022-06-06] MEDS: OXYTOCIN 30 UNITS/NS 500 ML 30 UNITS/500 ML BAG 125 UNITS IV CONT (20:45)
[2022-06-06] MEDS: KETOROLAC 30 MG/ML VIAL (*BKC) IV PUSH (22:03)
--- NOTE | 2022-06-06 23:30 | OBPPTRN ---
Patient transferred to post room #288 via stretcher. Support person present. Oriented to unit, room, information board, rooming in, admission packet and security measures. Patient verbalizes understanding.
[2022-06-07] MEDS: DEXTROSE 5%/0.45% SOD CHL 1,000 ML 125 ML IV CONT (01:05)
[2022-06-07] MEDS: HYDROcodone/acetaminophen (*CRX) 10-325 MG TABLET 1 TAB PO ×5 (03:10→16:16)
[2022-06-07 04:27] LABS: Basophils Percent Auto 0.3 % (0.2-1.2); Eosinophils Absolute Auto 0.1 K/mm3 (0-0.3); Eosinophils Percent Auto 0.8 % (0-4.4); Hematocrit 25.5 % (37.0-47.0); Hemoglobin 8.1 g/dL (12.0-15.0); Immature Granulocyte Absolute 0.05 K/mm3 (0.00-0.031); Immature Granulocyte Percent A 0.5 % (0-0.5); Lymphocytes Absolute Auto 1.39 K/mm3 (0.9-3.2); Lymphocytes Percent Auto 14.1 % (18.3-44.2); Mean Corpuscular HGB Conc 31.8 g/dl (32-36); Mean Corpuscular Volume 81.7 fl (80-100); Mean Platelet Volume 11.4 fl (7.4-10.4); Monocytes Absolute Auto 0.5 K/mm3 (0.1-0.6); Monocytes Percent Auto 5.1 % (2.6-8.5); Neutrophils Absolute Auto 7.8 K/mm3 (1.3-6.7); Neutrophils Percent Auto 79.2 % (45.5-73.1); Nucleated Red Blood Cells Perc 0.2 % (0.0-0.2); Platelet Count Result 126 k/mm3 (150-375); Red Blood Count 3.12 M/mm3 (4.2-5.4); Red Cell Distribution Width 14.9 % (11.5-14.5); White Blood Count 9.9 K/mm3 (4.5-10.0)
[2022-06-07 04:30] VITALS: BP 121/81; PULSE 68; RESP 16; TEMP 36.8; O2SAT 98
[2022-06-07] MEDS: KETOROLAC 30 MG/ML VIAL (*BKC) IV PUSH (04:30)
--- NOTE | 2022-06-07 06:28 | PM.OBPNVD ---
OB - PN: Subj Subjective Date/time seen: 06/07/22 06:28 Patient comments: no complaints and pain well controlled baby status: doing well OB - PN: Obj Data Labs 06/07/22 04:20 06/06/22 18:53 Labs: Laboratory Results - last 24 hr 06/06/22 06/06/22 06/06/22 18:53 18:53 18:53 WBC 8.8 RBC 4.04 L Hgb 10.5 L Hct 33.4 L MCV 82.7 MCH 26.0 MCHC 31.4 L RDW 14.9 H Plt Count 161 MPV 11.7 H Immature Gran % (Auto) 0.7 H Neut % (Auto) 72.6 Lymph % (Auto) 19.9 [place] % (Auto) 4.9 Eos % (Auto) 1.6 Baso % (Auto) 0.3 Lymph # (Auto) 1.74 [place] # (Auto) 0.4 Eos # (Auto) 0.1 Baso # (Auto) 0.0 Abs Immat Gran (auto) 0.06 H Absolute Neuts (auto) 6.4 Absolute Nucleated RBC 0.0 Nucleated RBC % 0.2 Sodium Potassium Chloride Carbon Dioxide Anion Gap BUN Creatinine Estim Creat Clear Calc Estimated GFR Glucose Calcium Total Bilirubin AST ALT Alkaline Phosphatase Total Protein Albumin Urine Opiates Screen Urine Methadone Screen Ur Barbiturates Screen Ur Phencyclidine Scrn Ur Amphetamine Screen U Benzodiazepines Scrn Urine Cocaine Screen U Cannabinoids Screen Hep Bs Antigen HIV 1&2 Ab/P24 Ag 4thGn Rubella IgG Antibody 8.9 L Blood Type O Positive Antibody Screen Negative 06/06/22 06/06/22 06/06/22 18:53 18:53 18:53 WBC RBC Hgb Hct MCV MCH MCHC RDW Plt Count MPV Immature Gran % (Auto) Neut % (Auto) Lymph % (Auto) [place] % (Auto) Eos % (Auto) Baso % (Auto) Lymph # (Auto) [place] # (Auto) Eos # (Auto) Baso # (Auto) Abs Immat Gran (auto) Absolute Neuts (auto) Absolute Nucleated RBC Nucleated RBC % Sodium 134 L Potassium 4.1 Chloride 106 Carbon Dioxide 23 Anion Gap 5 L BUN 7 Creatinine 0.50 L Estim Creat Clear Calc 130 Estimated GFR > 60 Glucose 89 Calcium 7.9 L Total Bilirubin 0.6 AST 31 ALT 21 Alkaline Phosphatase 394 H Total Protein 7.0 Albumin 3.6 Urine Opiates Screen Urine Methadone Screen Ur Barbiturates Screen Ur Phencyclidine Scrn Ur Amphetamine Screen U Benzodiazepines Scrn Urine Cocaine Screen U Cannabinoids Screen Hep Bs Antigen Negative HIV 1&2 Ab/P24 Ag 4thGn Negative Rubella IgG Antibody Blood Type Antibody Screen 06/06/22 06/07/22 18:53 04:20 WBC 9.9 RBC 3.12 L Hgb 8.1 L Hct 25.5 L MCV 81.7 MCH 26.0 MCHC 31.8 L RDW 14.9 H Plt Count 126 L MPV 11.4 H Immature Gran % (Auto) 0.5 Neut % (Auto) 79.2 H Lymph % (Auto) 14.1 L [place] % (Auto) 5.1 Eos % (Auto) 0.8 Baso % (Auto) 0.3 Lymph # (Auto) 1.39 [place] # (Auto) 0.5 Eos # (Auto) 0.1 Baso # (Auto) 0.0 Abs Immat Gran (auto) 0.05 H Absolute Neuts (auto) 7.8 H Absolute Nucleated RBC 0.0 Nucleated RBC % 0.2 Sodium Potassium Chloride Carbon Dioxide Anion Gap BUN Creatinine Estim Creat Clear Calc Estimated GFR Glucose Calcium Total Bilirubin AST ALT Alkaline Phosphatase Total Protein Albumin Urine Opiates Screen Negative Urine Methadone Screen Negative Ur Barbiturates Screen Negative Ur Phencyclidine Scrn Negative Ur Amphetamine Screen Positive A U Benzodiazepines Scrn Negative Urine Cocaine Screen Negative U Cannabinoids Screen Negative Hep Bs Antigen HIV 1&2 Ab/P24 Ag 4thGn Rubella IgG Antibody Blood Type Antibody Screen OB - PN A/P Plan day: 1 Plan: routine care Comments: patient was positive for amphetamines social service is being consulted Time Spent With Patient Time: Total time spent is greater than 50% in coordination of care (as documented) at patient's floor/unit and/or counseling patient: Time with yeison
--- NOTE | 2022-06-07 06:29 | PM.DS ---
DS: Admitting Diagnosis Discharge Date for Admitting Diagnosis term / spontaneous rupture membranes/ malpresentation /substance abuse DS: Discharge Diagnosis Discharge Diagnosis (1) Abnormal lie, antepartum: Code(s): O32.8XX0 - Maternal care for other malpresentation of fetus, not applicable or unspecified Status: Acute (2) Rupture of membranes with clear amniotic fluid: Status: Acute (3) No care in current : Code(s): O09.30 - Supervision of with insufficient care, unspecified trimester Status: Acute (4) Term : Code(s): Z34.90 - Encounter for supervision of normal , unspecified, unspecified trimester Status: Acute (5) Substance abuse: Code(s): F19.10 - Other psychoactive substance abuse, uncomplicated Status: Acute DS: Summary Hospital Course Reason for hospitalization: patient was admitted with virtually no care and rupture of membranes with a malpresentation. She was positive for amphetamine use. She underwent low-transverse section. For the physical standpoint her course was unremarkable. Her hemoglobin was 8.1 on day 1 but she was free of orthostatic changes. She remained afebrile. She was up, voiding without difficulty, eating a diet, ambulating, in general without complaints. Social service was consulted . Hospital Course: Her hospital course unremarkable. Serum urine she was up, voiding without difficulty, ambulating, eating regular diet, generally without complaints. rn women services is noted was consulted and she does not have care of her previous delivery as well. Time Spent with Patient Time attestation: Total time spent providing and/or coordinating discharge services: Exam Const: General: cooperative, healthy appearing, comfortable and average body habitus Orientation/consciousness: oriented to person, oriented to place and oriented to time Resp: Effort & Inspection: normal respiratory effort Cardio: Rate: regular rate Rhythm: regular rhythm Heart sounds: S1 normal heart sound present and S2 normal heart sound present GI: Inspection: normal to inspection ( fundus firm below the umbilicus) and incision ( wound is clean dry and intact) DS: Data Data Completed and Pending Pending studies at discharge: Pending at discharge 06/07/22 03:59 Surgical [PTH] Routine Labs on day of discharge: Labs from last 24 hours 06/07/22 06/06/22 06/06/22 04:20 18:53 18:53 WBC 9.9 RBC 3.12 L Hgb 8.1 L Hct 25.5 L MCV 81.7 MCH 26.0 MCHC 31.8 L RDW 14.9 H Plt Count 126 L MPV 11.4 H Immature Gran % (Auto) 0.5 Neut % (Auto) 79.2 H Lymph % (Auto) 14.1 L [place] % (Auto) 5.1 Eos % (Auto) 0.8 Baso % (Auto) 0.3 Lymph # (Auto) 1.39 [place] # (Auto) 0.5 Eos # (Auto) 0.1 Baso # (Auto) 0.0 Abs Immat Gran (auto) 0.05 H Absolute Neuts (auto) 7.8 H Absolute Nucleated RBC 0.0 Nucleated RBC % 0.2 Sodium Potassium Chloride Carbon Dioxide Anion Gap BUN Creatinine Estim Creat Clear Calc Estimated GFR Glucose Calcium Total Bilirubin AST ALT Alkaline Phosphatase Total Protein Albumin Urine Opiates Screen Negative Urine Methadone Screen Negative Ur Barbiturates Screen Negative Ur Phencyclidine Scrn Negative Ur Amphetamine Screen Positive A U Benzodiazepines Scrn Negative Urine Cocaine Screen Negative U Cannabinoids Screen Negative RPR Hep Bs Antigen HIV 1&2 Ab/P24 Ag 4thGn Negative Rubella IgG Antibody Blood Type Antibody Screen 06/06/22 06/06/22 06/06/22 18:53 18:53 18:53 WBC RBC Hgb Hct MCV MCH MCHC RDW Plt Count MPV Immature Gran % (Auto) Neut % (Auto) Lymph % (Auto) [place] % (Auto) Eos % (Auto) Baso % (Auto) Lymph # (Au
[2022-06-07] MEDS: MULTIVIT/MIN/PREN/FOL AC/IRON TABLET 1 TAB PO (07:37)
[2022-06-07] MEDS: POLYSACCHARIDE IRON COMPLEX 150 MG CAPSULE PO ×2 (07:37→16:17)
[2022-06-07] MEDS: DOCUSATE SODIUM 100 MG CAPSULE PO ×2 (07:37→16:17)
[2022-06-07 08:30] VITALS: BP 128/80; PULSE 85; RESP 16; TEMP 37; O2SAT 97
--- NOTE | 2022-06-07 09:29 | WPDANLDPN2 ---
Anes-Prog Note L&D Date/Time: 06/07/22 09:29 Comfortable throughout: section Neuraxial method: spinal Epidural/Spinal procedure site: clean & non-tender Neuro status: Neuro function grossly intact. Cardiovascular status: normal Respiratory status: normal Airway patency: baseline Mental status: baseline Post-Op hydration status: normal Vital Signs: Last Vital Signs Temp 98.6 F 06/07/22 08:30 Pulse 85 06/07/22 08:30 Resp 16 06/07/22 08:30 BP 128/80 06/07/22 08:30 Pulse Ox 97 06/07/22 08:30 O2 Del Method Room Air 06/07/22 04:30 Pain score (VAS): 4 I/O: Intake & Output 06/06/22 06/07/22 06/07/22 23:59 07:59 15:59 Intake Total 450 Output Total 300 275 Balance 150 -275 Post-procedural complaints: none Patient feedback: Patient satisfied with anesthetic care.
--- NOTE | 2022-06-07 09:30 | WPDANLDNPN2 ---
Anes-Prog Note L&D-Neuraxial Date/Time: 06/07/22 09:30 Neuraxial medications: intrathecal PF morphine Opiod-related complaints: none Patient feedback: Patient satisfied with post-operative pain management.
--- NOTE | 2022-06-07 10:33 | PCCCNOTE ---
Received referral due to positive drug test for amphetamines, no care and possible homelessness. Spoke with patient's nurse, Veronica, by phone and reviewed documentation in Nadia and baby's chart. Patient tested positive for amphetamines on urine drug screen. She also tested positive for amphetamines on 06/05/22 at [facility]. Baby's cord is pending testing. Father of baby has reported to nursing staff that he and nadia use fentanyl, however, uds did not show this. Per soft work cigar machine operator notes, baby is experiencing symptoms of withdrawal. Patient has 2 other children, neither of them are in her custody. Patient has been sleeping and not responding to nursing and physician questions and instruction regarding care of baby. Per nursing, baby has spent most of the time in the nursery or nurses station with nursing staff. Report made to [facility] online with intake ID [id number]. Will follow up when info from [facility] is available.
--- NOTE | 2022-06-07 12:50 | PC.NURSE ---
Callie from [facility] here to speak with this patient. Copy of [facility] badge placed on chart.
[2022-06-07 16:15] VITALS: BP 128/83; PULSE 81; RESP 16; TEMP 36.8; O2SAT 100
[2022-06-07 18:50] VITALS: BP 125/81; PULSE 88; RESP 16; TEMP 36.9; O2SAT 99
[2022-06-07] MEDS: IBUPROFEN 600 MG TABLET PO (20:14)
[2022-06-07] MEDS: SIMETHICONE 80 MG TAB.CHEW PO (20:14)
[2022-06-07] MEDS: HYDROcodone/acetaminophen (*CRX) 5-325 MG TABLET 1 TAB PO (20:14)
[2022-06-08] MEDS: HYDROcodone/acetaminophen (*CRX) 5-325 MG TABLET 1 TAB PO ×3 (00:31→11:06)
[2022-06-08] MEDS: SIMETHICONE 80 MG TAB.CHEW PO ×2 (00:31→04:28)
[2022-06-08] MEDS: IBUPROFEN 600 MG TABLET PO ×2 (04:28→11:06)
--- NOTE | 2022-06-08 06:25 | P.PNOB_ITS ---
OB - PN: Subj Subjective Date/time seen: 06/08/22 06:25 Patient comments: no complaints and incisional pain OB - PN: Obj Data Labs 06/07/22 04:20 06/06/22 18:53 OB - PN A/P Plan day: 2 Plan: routine care Time Spent With Patient Time: Total time spent is greater than 50% in coordination of care (as documented) at patient's floor/unit and/or counseling patient: Time with patient: less than 15 minutes Exam 2 Const: General: cooperative and healthy appearing Nutritional Appearance: average body habitus HENMT: Head: normal to inspection Resp: Effort & Inspection: normal respiratory effort Cardio: Rate: regular rate Rhythm: regular rhythm Heart sounds: S1 normal heart sound present and S2 normal heart sound present GI: Inspection: normal to inspection and incision ( clean dry and intact)
[2022-06-08 08:20] VITALS: BP 96/53; PULSE 80; RESP 16; TEMP 36.6; O2SAT 97
[2022-06-08] MEDS: POLYSACCHARIDE IRON COMPLEX 150 MG CAPSULE PO (08:26)
[2022-06-08] MEDS: DOCUSATE SODIUM 100 MG CAPSULE PO (08:26)
[2022-06-08] MEDS: HYDROcodone/acetaminophen (*CRX) 10-325 MG TABLET 1 TAB PO (08:26)
[2022-06-08] MEDS: MULTIVIT/MIN/PREN/FOL AC/IRON TABLET 1 TAB PO (08:26)
[2022-06-08 09:40] LABS: Rapid Plasma Reagin Non-Reactive (NonReactive)
--- NOTE | 2022-06-08 14:37 | PCCCNOTE ---
Met with pt. and father of baby this morning. Baby has been transferred to [facility]. Spoke to social welfare research worker at [facility] and [facility] worker, Red. Pt. and father of baby indicated not knowing where they will go at discharge. They stated each living with their mothers prior to hospitalization and uncertainy to return. Gave homeless shelters and housing resources. Encouraged they contact any/all of interest. They indicated plan to find transport for wherever they decide to go at discharge. Notified RN. Pt. discharged today.
== END 2022-06-08 11:07 | disposition home or self-care (01) | DRG 540 ==
LOC: ANHOBOP 18:35 → ANHLDR 18:35 → ANHOB2 23:48
PROVIDERS: Admitting Provider Obstetrics & Gynecology; Visit Provider Obstetrics & Gynecology
PROC: 10D00Z1 Extraction of Products of Conception, Low, Open Approach (ICD-10-PCS; CPT 59514; principal; 2022-06-06 19:30)
DX: O32.2XX0 Maternal care for transverse and oblique lie, not applicable or unspecified (principal); O99.324 Drug use complicating childbirth; F15.129 Other stimulant abuse with intoxication, unspecified; Z3A.38 38 weeks gestation of pregnancy; Z37.0 Single live birth
CPT/HCPCS: 36415; 80053; 80307; 85025; 86592; 86703; 86762; 86850; 86900; 86901; 87340; 88307; A9270; G0432; J0131; J0456; J1885; J2274; J2405; J2590

== ENCOUNTER 2022-06-20 23:10 | Emergency (ER) | payer OTHER, SELFPAY ==
[2022-06-20 23:13] VITALS: BP 107/76; PULSE 121; RESP 20; TEMP 36.4; O2SAT 100
--- NOTE | 2022-06-20 23:26 | WPDEDEXPGENP ---
HPI - General Ped General Chief complaint: Urogenital-Female Stated complaint: Urogenital History of Present Illness HPI narrative: Healthy 27yo woman gave two weeks ago (on 06/06) to her third child by , presents with continued pain to her suprapubic area that never improved since her delivery. No fevers or chills. She has pain when she urinates and also some slightly blood tinged discharge from the vagina. Taking Ketorolac for the pain but hasn't had a dose since yesterday. Related Data Home Medications Medication Instructions Recorded Confirmed vits no.126-ferrous fum 1 tablet PO DAILY 06/05/22 06/05/22 28 mg iron-folic acid 800 mcg tablet (Classic ) Allergies Allergy/AdvReac Type Severity Reaction Status Date / Time Penicillins Allergy Unknown unknown Verified 08/31/21 23:51 Pediatric Review of Systems All systems ED: reviewed and negative except as stated Constitutional: Denies fever or chills Cardiovascular: Denies chest pain Gastrointestinal: Denies nausea, vomiting or diarrhea Genitourinary: Reports dysuria and vaginal discharge Musculoskeletal: Denies joint swelling or joint pain Integumentary: Denies rash PMFSH Past Medical History Medical History BV (bacterial vaginosis) Laceration of forearm, left Opiate addiction STD exposure UTI (urinary tract infection) Social History Social History Smoking status: Current every day smoker Tobacco type: cigarettes Second hand tobacco smoke exposure: Yes Pediatric Exam General: Limitations: no limitations and altered mental status General appearance: well-appearing and well-hydrated Head: Head exam: normocephalic; negative atraumatic Eye: Eye exam: Absent conjunctival injection ENT: ENT exam: mucous membranes moist Respiratory: Respiratory exam: Absent respiratory distress or stridor Cardiovascular: Cardiovascular exam: Present normal rhythm and tachycardia Abdominal Exam: Abdominal exam: Present soft ( scar well healing without dehiscence or any surrounding cellulitis) and tenderness (suprapubic tenderness); Absent distention Extremities Exam: Extremities exam: Present normal inspection; Absent pedal edema Skin: Skin exam: Present warm and dry; Absent erythema or pallor Course Vital Signs Vital signs: Vital Signs Temperature 36.4 C 06/20/22 23:13 Pulse Rate 121 H 06/20/22 23:13 Respiratory Rate 20 06/20/22 23:13 Blood Pressure 107/76 06/20/22 23:13 Pulse Oximetry 100 06/20/22 23:13 Oxygen Delivery Room Air 06/20/22 23:13 Temperature 36.4 C 06/20/22 23:13 Pulse Rate 121 H 06/20/22 23:13 Respiratory Rate 20 06/20/22 23:13 Blood Pressure 107/76 06/20/22 23:13 Pulse Oximetry 100 06/20/22 23:13 Oxygen Delivery Room Air 06/20/22 23:13 Medical Decision Making MDM Narrative Medical decision making narrative: suprapubic pain two weeks DDx cellulitis, surgical site infection, vulvovaginitis, cystitis. IV or IM treatments offered and declined by patient who only wants to try PO medication at this time, citing that she had similar symptoms after her last and PO medication worked rapidly to improve her pain. Pt advised that if symptoms are not improving, she needs to follow-up with her Car Unloader Helper right away. Pt said she is going to [place] for followup this week. Medical Records Medical records reviewed: Yes I reviewed the external patient's medical records. Vital Signs Vital Signs: Vital Signs Temperature 36.4 C 06/20/22 23:13 Pulse Rate 121 H 06/20/22 23:13 Respiratory Rate 06/20/22 23:13 Blood Pressure 107/76 06/20/22 23:13 Pulse Oximetry 100 06/20/22 23:13 Oxygen Delivery Room Air 06/20/22 23:13 Temperature 36.4 C 06/20/22 23:13 Pulse Rate 121 H 06/20/22 23:13 R
[2022-06-20] MEDS: DOXYCYCLINE HYCLATE 100 MG TABLET PO (23:42)
[2022-06-20] MEDS: ACETAMINOPHEN 500 MG TABLET 1000 MG PO (23:43)
[2022-06-20] MEDS: KETOROLAC 10 MG TABLET 20 MG PO (23:43)
[2022-06-20] MEDS: CIPROFLOXACIN 500 MG TAB PO (23:43)
[2022-06-21 00:04] LABS: Appearance Urine Clear (Clear); Bilirubin Urine Negative (Negative); Blood Urine Trace-Intact (Negative); Color Urine Yellow (Yellow); Glucose Urine UA Negative (Negative); Ketones Urine Negative (Negative); Leukocyte Esterase Ur 1+ LEU/UL (Negative); Nitrate Urine Negative (Negative); Protein Urine 1+ (Negative)
[2022-06-21 00:16] VITALS: PULSE 98; RESP 18; TEMP 37.7; O2SAT 98
[2022-06-21 00:23] LABS: Add Urine Microscopic? YES; Amorphous Sediment Urine Few; Bacteria Urine 1+ /hpf; RBC Urine 0-2 /hpf (0-2); WBC Clumps Urine Present /hpf
[2022-06-21 00:24] LABS: Mucus Urine Heavy /lpf
--- NOTE | 2022-06-23 12:40 | PC.NURSE ---
FINAL URINE CULTURE RESULTS: NO GROWTH. NO ACTION NEEDED.
== END 2022-06-21 00:17 | disposition home or self-care (01) ==
PROVIDERS: Emergency Provider Emergency Medicine
DX: N30.01 Acute cystitis with hematuria (principal); R10.2 Pelvic and perineal pain; F17.210 Nicotine dependence, cigarettes, uncomplicated
CPT/HCPCS: 81001; 87086; 99283; A9270

== ENCOUNTER 2022-07-29 02:25 | Emergency (ER) | payer OTHER, SELFPAY ==
--- NOTE | ~2022-07-29 | XR_ITS ---
Right ankle Technique: AP, oblique, and lateral views were obtained. Clinical History: Pain Findings: No acute fracture or dislocation is seen. Osseous alignment is anatomic. Ankle mortise and other visualized joint spaces are preserved. Lateral soft tissue swelling noted. Impression: No fracture or dislocation. Lateral soft tissue swelling. Reviewed, dictated and finalized at [facility]. Impression: No fracture or dislocation. Lateral soft tissue swelling.
[2022-07-29 02:25] VITALS: BP 111/83; PULSE 101; RESP 18; TEMP 36.7; O2SAT 94
--- NOTE | 2022-07-29 02:48 | ED.GENADULT ---
HPI - General Adult General Chief complaint: Extremity Injury, Lower Stated complaint: left ankle swelling Time Seen by Provider: 07/29/22 02:44 History of Present Illness HPI narrative: Healthy 27yo woman, undomiciled, presents with pain and swelling of the right ankle, lateral mal, for the past 2 days, since wacking the ankle hard while standing in a friend's kitchen. Pt confirms she is indeed homeless despite the fact that her friend has a house and she has been walking several miles in the last 2 days. Related Data Home Medications Medication Instructions Recorded Confirmed norgestimate 0.25 mg-ethinyl tablet 07/29/22 estradiol 35 mcg tablet (Estarylla) Allergies Allergy/AdvReac Type Severity Reaction Status Date / Time Penicillins Allergy Unknown unknown Verified 08/31/21 23:51 Review of Systems Review of Systems: All systems reviewed & are unremarkable except as noted in HPI and below Constitutional: Constitutional: Denies chills and Denies fever(s) ENT: Denies dizziness Cardiovascular: Cardiovascular: Denies chest pain Respiratory: Respiratory: Denies dyspnea Gastrointestinal: Gastrointestinal: Denies abdominal pain PMFSH Past Medical History Medical History BV (bacterial vaginosis) Laceration of forearm, left Opiate addiction STD exposure UTI (urinary tract infection) Social History Social History Smoking status: Current every day smoker Tobacco type: cigarettes Second hand tobacco smoke exposure: Yes Exam Const: General: healthy appearing, no acute distress and alert Nutritional Appearance: well nourished Orientation/consciousness: patient oriented x3 Eyes: Conjunctivae: conjunctivae normal Neck: Other: supple Resp: Effort & Inspection: normal respiratory effort and not labored Cardio: Rate: regular rate GI: Inspection: non-distended Skin: General skin exam: normal color, no jaundice and no pallor Neuro: General: patient oriented x3, moves all extremities and no focal motor deficits Extrem: Other: swelling, erythema, and edema about the right lateral malleolus; left ankle normal Course Vital Signs Vital signs: Vital Signs Temperature 36.7 C 07/29/22 02:25 Pulse Rate 101 H 07/29/22 02:25 Respiratory Rate 18 07/29/22 02:25 Blood Pressure 111/83 07/29/22 02:25 Pulse Oximetry 94 07/29/22 02:25 Oxygen Delivery Room Air 07/29/22 02:25 Temperature 36.7 C 07/29/22 02:25 Pulse Rate 101 H 07/29/22 02:25 Respiratory Rate 18 07/29/22 02:25 Blood Pressure 111/83 07/29/22 02:25 Pulse Oximetry 94 07/29/22 02:25 Oxygen Delivery Room Air 07/29/22 02:25 Medical Decision Making MDM Narrative Medical decision making narrative: focal malleolar swelling DDx contusion, fracture, cellulitis, insect bite. XR to rule out fx. Vital Signs Vital Signs: Vital Signs Temperature 36.7 C 07/29/22 02:25 Pulse Rate 101 H 07/29/22 02:25 Respiratory Rate 18 07/29/22 02:25 Blood Pressure 111/83 07/29/22 02:25 Pulse Oximetry 94 07/29/22 02:25 Oxygen Delivery Room Air 07/29/22 02:25 Temperature 36.7 C 07/29/22 02:25 Pulse Rate 101 H 07/29/22 02:25 Respiratory Rate 18 07/29/22 02:25 Blood Pressure 111/83 07/29/22 02:25 Pulse Oximetry 94 07/29/22 02:25 Oxygen Delivery Room Air 07/29/22 02:25 Imaging Data Attestation: I personally reviewed and interpreted this imaging study as follows: Discharge Plan Discharge Clinical Impression: Cellulitis Qualifiers: Site of cellulitis: extremity Site of cellulitis of extremity: lower extremity Laterality: right Qualified Code(s): L03.115 - Cellulitis of right lower limb Patient Disposition: Home, Self-Care Condition: Stable Instructions: Antibiotic Form, Cellulitis (ED) Additional Instructions: Your leg appea
[2022-07-29] MEDS: KETOROLAC (*BKC) 60 MG/2 ML VIAL IM (03:00)
[2022-07-29] MEDS: SULFAMETHOXAZOLE/TRIMETHOPRIM 800/160 MG DS TABLET 2 TAB PO (03:07)
[2022-07-29 03:22] VITALS: BP 111/81; PULSE 82; RESP 18; TEMP 37.2; O2SAT 99
== END 2022-07-29 03:51 | disposition home or self-care (01) ==
PROVIDERS: Emergency Provider Emergency Medicine
DX: L03.115 Cellulitis of right lower limb (principal); F17.200 Nicotine dependence, unspecified, uncomplicated; W22.8XXA Striking against or struck by other objects, initial encounter
CPT/HCPCS: 73610; 96372; 99283; A9270; J1100; J1885

== ENCOUNTER 2024-03-26 09:18 | Emergency (ER) | payer OTHER, SELFPAY ==
[2024-03-26 09:18] VITALS: BP 128/90; PULSE 116; RESP 17; TEMP 36.9; O2SAT 99
[2024-03-26 09:52] LABS: Add Urine Microscopic? NO; Appearance Urine Clear (Clear); Bilirubin Urine Negative (Negative); Blood Urine Negative (Negative); Color Urine Light Yellow (Yellow); Glucose Urine UA Negative (Negative); Ketones Urine Negative (Negative); Leukocyte Esterase Ur Negative LEU/UL (Negative); Nitrate Urine Negative (Negative); Protein Urine Negative (Negative); Urobilinogen Urine 0.2 mg/dL (0.2-1.0); pH Urine 7.5 (5.0-8.0)
--- NOTE | 2024-03-26 10:04 | ED.FEMALEGU ---
HPI - Female Genitourinary General Chief complaint: Urogenital-Female Stated complaint: UTI Time Seen by Provider: 03/26/24 09:28 Source: patient Mode of arrival: ambulatory Limitations: no limitations History of Present Illness HPI Narrative: patient is a 29-year-old female with burning on urination for the past 2 days. No other symptoms. She is in a relationship that had her boyfriend cheat with another partner. MD elicited complaint: dysuria, UTI and possible STD Pertinent past history: STI/STD Onset (ago): day(s) (2) Location of symptoms: urethra Severity: mild Female Urogenital Radiation: Non-Radiating Severity scale (1-10): 2 Quality of pain: sharp Consistency: intermittent Vaginal discharge: none Vaginal bleeding: none Urinary symptoms: Dysuria Exacerbating factors: none Relieving factors: none Associated symptoms: denies other symptoms Treatment prior to arrival: none Sexual activity: Yes and Known STD Exposure Patient : No Related Data Home Medications ?Medication ?Instructions ?Recorded ?Confirmed ?Last Taken ?Type norgestimate 0.25 mg-ethinyl tablet 07/29/22 Unknown History estradiol 35 mcg tablet (Estarylla) Allergies Allergy/AdvReac Type Severity Reaction Status Date / Time Penicillins Allergy Unknown unknown Verified 08/31/21 23:51 Review of Systems Review of Systems: All systems reviewed & are unremarkable except as noted in HPI and below Constitutional: Constitutional: Reports no additional constitutional complaints Eyes: Eyes: Reports no additional eye complaints ENT: Reports system reviewed and no additional complaints, except as documented Cardiovascular: Cardiovascular: Reports no additional cardiovascular complaints Respiratory: Respiratory: Reports no additional respiratory complaints Gastrointestinal: Gastrointestinal: Reports no additional gastrointestinal complaints Genitourinary: Genitourinary: Reports no additional female genitourinary complaints Musculoskeletal: Musculoskeletal: Reports no additional musculoskeletal complaints Integumentary/Breasts: Skin/Breast: Reports system reviewed and no additional complaints, except as docu Neurologic: Reports system reviewed and no additional complaints, except as documented Psychiatric: Psychiatric: Reports no additional psychiatric complaints Endocrine: Endocrine: Reports no additional endocrine complaints Hematologic/Lymphatic: Hematologic/Lymphatic: Reports no additional hematologic/lymphatic complaints Allergic/Immunologic: Allergic/Immunologic: Reports no additional allergic/immunologic complaints PMFSH Past Medical History Medical History Laceration of forearm, left BV (bacterial vaginosis) STD exposure UTI (urinary tract infection) Opiate addiction Social History Social History Smoking status: Current every day smoker Tobacco type: cigarettes Second hand tobacco smoke exposure: Yes Exam Const: General: healthy appearing Nutritional Appearance: well nourished Orientation/consciousness: patient oriented x3 HENMT: Head: normal to inspection Ears: external ears normal Face/Nose/Sinus: Normal external nose present Eyes: Conjunctivae: conjunctivae normal Pupils: Equal, round and reactive pupils present EOM: EOMs intact bilaterally Neck: Neck: normal visual inspection Chest: Chest palpation & inspection: normal inspection of the chest Resp: Effort & Inspection: normal respiratory effort and not labored Auscultation: clear to auscultation bilaterally and no crackles Cardio: Rate: regular rate Rhythm: regular rhythm Heart sounds: no murmurs GI: Inspection: non-distended GI Palp: Yes Soft to palpation and No Tenderness to palpation present (GI) Auscultation: normal bowel sounds : General: Yes bladder normal to palpation Back/Spine/Pelvis: Back: no CVA tenderness Skin: General skin exam: normal color Rashes: no rashes Wounds: no wounds Neuro: General: patient oriented x3 Cranial nerves: Yes Nystagmus not present Speech: normal speech Extrem: General: normal to inspection Psych: Appearance: grossly normal Mental Status: mental status grossly normal Affect: normal affect MDM - Female Genitourinary MDM Narrative Medical decision making narrative: Patient is a 29-year-old female with likely exposure to STD and possible UTI. We will do urinalysis and gonorrhea chlamydia testing today. Lab Data Attestation: I reviewed the patient's lab results. Labs: Lab Results 03/26/24 Range/Units 09:29 Urine Color Light yellow (Yellow) Urine Appearance Clear (Clear) Urine pH 7.5 (5.0-8.0) Ur Specific [place] 1.020 (1.010-1.020) Urine Protein Negative (Negative) Urine Glucose (UA) Negative (Negative) Urine Ketones Negative (Negative) Ur Blood (Man) Negative (Negative) Urine Nitrate Negative (Negative) Urine Bilirubin Negative (Negative) Urine Urobilinogen 0.2 (0.2-1.0) mg/dL Leukocyte Esterase Rfl Negative (Negative) TALHA/UL C. trachomatis (PCR) Pending N. gonorrhoeae (PCR) Pending Discharge Plan Discharge Clinical Impression: STD exposure, Urethritis Patient Disposition: Home, Self-Care Condition: Stable Instructions: Antibiotic Form, Sexually Transmitted Diseases (ED), Urethritis (ED) Additional Instructions: please follow-up with primary doctor in the next week. I suggest further STD testing to include blood work for reassurance at follow-up. Patient Language: Swedish Prescriptions: No Action norgestimate-ethinyl estradiol [Estarylla] 0.25-35 mg-mcg tablet sulfamethoxazole-trimethoprim [Bactrim DS] 800-160 mg tablet 2 tablet PO BID Qty: 28 0RF Follow-up/Referrals: UNKNOWN,DOCTOR [Primary Care Provider] - Time of Disposition: 10:18
[2024-03-26] MEDS: cefTRIAXone 500 MG, LIDOCAINE 1% LOCAL INJ 1 ML IM (10:18)
[2024-03-26] MEDS: AZITHROMYCIN 250 MG TABLET 1000 MG PO (10:19)
--- NOTE | 2024-03-26 10:24 | PC.NURSE ---
patient does not want to wait the 15 minutes post shot, she states she has somewhere to be, ERP is aware and okay with patient discharging.
[2024-03-26 10:25] VITALS: BP 128/90; PULSE 116; RESP 17; TEMP 36.9; O2SAT 99
[2024-03-27 08:05] LABS: Chlamydia trachomatis DETECTED (NOT DETECTE); Neisseria gonorrhoeae PCR NOT DETECTED (NOT DETECTE)
== END 2024-03-26 10:25 | disposition home or self-care (01) ==
PROVIDERS: Emergency Provider Emergency Medicine
DX: N34.2 Other urethritis (principal); Z11.3 Encounter for screening for infections with a predominantly sexual mode of transmission
CPT/HCPCS: 81003; 87491; 87591; 96372; 99284; A9270; J0696; J2003

== ENCOUNTER 2024-08-14 18:29 | Emergency (ER) | payer OTHER, SELFPAY ==
[2024-08-14 18:29] VITALS: BP 99/57; PULSE 99; RESP 16; TEMP 36.8; O2SAT 96
--- NOTE | 2024-08-14 18:34 | ED.EXTPRO ---
HPI - Extremity Problem General Chief complaint: Extremity Problem,Nontraumatic <Sotero Reynolds MD - Last Filed: 08/14/24 18:57> Stated complaint: left foot pain <Sotero Reynolds MD - Last Filed: 08/14/24 18:57> Time Seen by Provider: 08/14/24 18:33 <Sotero Reynolds MD - Last Filed: 08/14/24 18:57> Source: patient <Sotero Reynolds MD - Last Filed: 08/14/24 18:57> Mode of arrival: ambulatory <Sotero Reynolds MD - Last Filed: 08/14/24 18:57> Limitations: no limitations <Sotero Reynolds MD - Last Filed: 08/14/24 18:57> History of Present Illness HPI Narrative: 29 years old white female, healthy otherwise, homeless, had blister at the bottom of the left 3rd toe 4 days ago, popped, subsequently developed severe tenderness redness of the left foot and distal left leg. Patient is telling me that she been sleeping in different places, over the last 3 days unable to sleep because unable to find a place to accommodate her. Patient is telling me that she been standing and walking for the last 3 days. She denies any fever, chills, nausea, vomiting. <Sotero Reynolds MD - Last Filed: 08/14/24 18:57> Related Data Home medications: Home Medications ?Medication ?Instructions ?Recorded ?Confirmed ?Last Taken ?Type norgestimate 0.25 mg-ethinyl tablet 07/29/22 Unknown History estradiol 0.035 mg tablet (Estarylla) <Sotero Reynolds MD - Last Filed: 08/14/24 18:57> Allergies/Adverse reactions: Allergies Allergy/AdvReac Type Severity Reaction Status Date / Time Penicillins Allergy Unknown unknown Verified 08/31/21 23:51 <Sotero Reynolds MD - Last Filed: 08/14/24 18:57> Review of Systems Review of Systems: All systems reviewed & are unremarkable except as noted in HPI and below <Sotero Reynolds MD - Last Filed: 08/14/24 18:57> PMFSH Past Medical History Medical History: Medical History Laceration of forearm, left BV (bacterial vaginosis) STD exposure UTI (urinary tract infection) Opiate addiction <Sotero Reynolds MD - Last Filed: 08/14/24 18:57> Social History Social History: Social History Smoking status: Current every day smoker Tobacco type: cigarettes Second hand tobacco smoke exposure: Yes <Sotero Reynolds MD - Last Filed: 08/14/24 18:57> Exam Narrative: General appearance: Well-developed, well-nourished Skin: Normal color Head: Normocephalic, nontraumatic Eyes: Clear conjunctiva ENT: Oropharynx normal, ears normal, nose normal Neck: Supple, nontender Chest and respiratory: Airway patent, no respiratory distress, no accessory muscle use Heart: Regular rate/rhythm Abdomen: Soft, nontender, no organomegaly, quiet bowel sounds Vascular: Normal peripheral pulses, normal capillary refill. Musculoskeletal: Left lower extremity exam showing an old laceration at the bottom of the 3rd toe, diffuse erythema, warmth, swelling and tenderness of the foot mainly dorsally and distal leg. Neurologic: Alert and oriented ?3, [employer]WR[employer] is normal as tested, no gross motor deficit <Sotero Reynolds MD - Last Filed: 08/14/24 18:57> Course Vital Signs Vital signs: Vital Signs Temperature 36.8 C 08/14/24 18:29 Pulse Rate 99 08/14/24 18:29 Respiratory Rate 16 08/14/24 18:29 Blood Pressure 99/57 L 08/14/24 18:29 Pulse Oximetry 96 08/14/24 18:29 Oxygen Delivery Room Air 08/14/24 18:29 Temperature 36.6 C 08/14/24 20:34 Pulse Rate 88 08/14/24 20:34 Respiratory Rate 16 08/14/24 20:34 Blood Pressure 121/70 08/14/24 20:34 Pulse Oximetry 98 08/14/24 20:34 Oxygen Delivery Room Air 08/14/24 20:34 <Sotero Reynolds MD - Last Filed: 08/14/24 18:57> Vital Signs Temperature 36.8 C 08/14/24 18:29 Pulse Rate 99 08/14/24 18:29 Respiratory Rate 16 08/14/24 18:29 Blood Pressure 99/57 L 08/14/24 18:29 Pulse Oximetry 96 08/14/24 18:29 Oxygen Delivery Room Air 08/14/24 18:29 Temperature 36.6 C 08/14/24 20:34 Pulse Rate 88 08/14/24 20:34 Respiratory Rate 16 08/14/24 20:34 Blood Pressure 121/70 08/14/24 20:34 Pulse Oximetry 98 08/14/24 20:34 Oxygen Delivery Room Air 08/14/24 20:34 <Gerson Walker MD - Last Filed: 08/14/24 21:00> MDM - Extremity (Nontraumatic) MDM Narrative Medical decision making narrative: Patient is a 29-year-old female with bilateral lower extremity and left worse than right signs of cellulitis. She has swelling in the left lower extremity. We will check some labs. This case was signed out to me from prior physician. We will have an ultrasound done on bilateral lower extremities in the morning. This is less likely to be a blood clot at this time and we will await ultrasound results in the morning. we will use Bactrim. Tetanus shot is up-to-date. <Gerson Walker MD - Last Filed: 08/14/24 21:00> Differential Diagnosis Differential diagnosis: Likely cellulitis, lower extremity edema and other ( Dehydration, electrolyte imbalance,) <Sotero Reynolds MD - Last Filed: 08/14/24 18:57> Lab Data Result diagrams: 08/14/24 19:08 08/14/24 19:08 <Sotero Reynolds MD - Last Filed: 08/14/24 18:57> Labs: Lab Results 08/14/24 Range/Units 19:08 WBC 3.3 L (4.8-10.8) K/mm3 RBC 3.26 L (4.20-5.40) M/mm3 Hgb 8.9 L (12.0-15.0) g/dL Hct 28.2 L (35.0-49.0) % MCV 86.5 (78.0-102.0) fL MCH 27.3 (27.0-31.0) pg MCHC 31.6 L (32-36) g/dL RDW 14.4 (11.6-14.4) % Plt Count 199 (150-420) K/mm3 MPV 9.0 L (9.2-11.8) fl Immature Gran % (Auto) Not Reportable Neut % (Auto) Not Reportable Lymph % (Auto) Not Reportable Bates % (Auto) Not Reportable Eos % (Auto) Not Reportable Baso % (Auto) Not Reportable Lymph # (Auto) Not Reportable Bates # (Auto) Not Reportable Eos # (Auto) Not Reportable Baso # (Auto) Not Reportable Abs Immat Gran (auto) Not Reportable Absolute Neuts (auto) Not Reportable Absolute Nucleated RBC Not Reportable Neutrophils % (Manual) 54 (46-73) % Band Neutrophils % 0 (0-6) % Lymphocytes % (Manual) 36 (18-44) % Monocytes % (Manual) 8 (3-9) % Eosinophils % (Manual) 2 (1-6) % Basophils % (Manual) 0 (0-1) % Nucleated RBC % Not Reportable Abs Neuts (Manual) 1.78 (1.3-6.7) K/mm3 Abs Lymphs (Manual) 1.18 (1.1-4.5) K/mm3 Abs Monocytes (Manual) 0.26 (0.1-0.90) K/mm3 Absolute Eos (Manual) 0.06 (0.02-0.50) K/mm3 Abs Basophils (Manual) 0.00 (0-0.1) K/mm3 Platelet Estimate Adequate (Adequate) Schistocytes Not Reportable Sodium 138 (137-145) mmol/L Potassium 3.9 (3.4-5.0) mmol/L Chloride 105 (98-107) mmol/L Carbon Dioxide 31 H (22-30) mmol/L Anion Gap 2 L (4-12) mmol/L BUN 11 (7-17) mg/dL Creatinine 0.51 L (0.7-1.0) mg/dL Estim Creat Clear Calc 122 ml/min Estimated GFR > 60 (59 - ) Glucose 88 (65-110) mg/dL Calculated Osmolality 284 L (285-295) mOsm/kg Lactic Acid 0.8 (0.4-2.0) mmol/L Calcium 8.2 L (8.4-10.2) mg/dL Total Bilirubin 0.5 (0.2-1.3) mg/dL AST 76 H (14-36) U/L ALT 65 H (6-35) U/L Alkaline Phosphatase 107 (38-126) U/L C-Reactive Protein > 9.0 H (<1.0) mg/dL Total Protein 7.2 (6.3-8.2) g/dL Albumin 3.8 (3.5-5.1) g/dL <Sotero Reynolds MD - Last Filed: 08/14/24 18:57> Lab Results 08/14/24 Range/Units 19:08 WBC 3.3 L (4.8-10.8) K/mm3 RBC 3.26 L (4.20-5.40) M/mm3 Hgb 8.9 L (12.0-15.0) g/dL Hct 28.2 L (35.0-49.0) % MCV 86.5 (78.0-102.0) fL MCH 27.3 (27.0-31.0) pg MCHC 31.6 L (32-36) g/dL RDW 14.4 (11.6-14.4) % Plt Count 199 (150-420) K/mm3 MPV 9.0 L (9.2-11.8) fl Immature Gran % (Auto) Not Reportable Neut % (Auto) Not Reportable Lymph % (Auto) Not Reportable Bates % (Auto) Not Reportable Eos % (Auto) Not Reportable Baso % (Auto) Not Reportable Lymph # (Auto) Not Reportable Bates # (Auto) Not Reportable Eos # (Auto) Not Reportable Baso # (Auto) Not Reportable Abs Immat Gran (auto) Not Reportable Absolute Neuts (auto) Not Reportable Absolute Nucleated RBC Not Reportable Neutrophils % (Manual) 54 (46-73) % Band Neutrophils % 0 (0-6) % Lymphocytes % (Manual) 36 (18-44) % Monocytes % (Manual) 8 (3-9) % Eosinophils % (Manual) 2 (1-6) % Basophils % (Manual) 0 (0-1) % Nucleated RBC % Not Reportable Abs Neuts (Manual) 1.78 (1.3-6.7) K/mm3 Abs Lymphs (Manual) 1.18 (1.1-4.5) K/mm3 Abs Monocytes (Manual) 0.26 (0.1-0.90) K/mm3 Absolute Eos (Manual) 0.06 (0.02-0.50) K/mm3 Abs Basophils (Manual) 0.00 (0-0.1) K/mm3 Platelet Estimate Adequate (Adequate) Schistocytes Not Reportable Sodium 138 (137-145) mmol/L Potassium 3.9 (3.4-5.0) mmol/L Chloride 105 (98-107) mmol/L Carbon Dioxide 31 H (22-30) mmol/L Anion Gap 2 L (4-12) mmol/L BUN 11 (7-17) mg/dL Creatinine 0.51 L (0.7-1.0) mg/dL Estim Creat Clear Calc 122 ml/min Estimated GFR > 60 (59 - ) Glucose 88 (65-110) mg/dL Calculated Osmolality 284 L (285-295) mOsm/kg Lactic Acid 0.8 (0.4-2.0) mmol/L Calcium 8.2 L (8.4-10.2) mg/dL Total Bilirubin 0.5 (0.2-1.3) mg/dL AST 76 H (14-36) U/L ALT 65 H (6-35) U/L Alkaline Phosphatase 107 (38-126) U/L C-Reactive Protein > 9.0 H (<1.0) mg/dL Total Protein 7.2 (6.3-8.2) g/dL Albumin 3.8 (3.5-5.1) g/dL <Gerson Walker MD - Last Filed: 08/14/24 21:00> Discharge Plan Discharge Clinical Impression: Cellulitis and abscess of leg, Edema due to infection <Sotero Reynolds MD - Last Filed: 08/14/24 18:57> Patient Disposition: Home <Sotero Reynolds MD - Last Filed: 08/14/24 18:57> Condition: Stable <Sotero Reynolds MD - Last Filed: 08/14/24 18:57> Instructions: Antibiotic Form, Cellulitis (ED) <Sotero Reynolds MD - Last Filed: 08/14/24 18:57> Additional Instructions: Please come back to the hospital in the a.m. for an ultrasound of both lower extremity. <Sotero Reynolds MD - Last Filed: 08/14/24 18:57> Patient Language: Persian <Sotero Reynolds MD - Last Filed: 08/14/24 18:57> Prescriptions: New sulfamethoxazole-trimethoprim [Bactrim DS] 800-160 mg tablet 1 tablet PO BID 10 Days Qty: 20 0RF No Action norgestimate-ethinyl estradiol [Estarylla] 0.25-35 mg-mcg tablet sulfamethoxazole-trimethoprim [Bactrim DS] 800-160 mg tablet 2 tablet PO BID Qty: 28 0RF <Sotero Reynolds MD - Last Filed: 08/14/24 18:57> Other Ambulatory Orders: US venous doppler LE BI (Routine) Timeframe: 1 Day Location: Determined by Patient Ordered By: Gerson Walker <Sotero Reynolds MD - Last Filed: 08/14/24 18:57> Follow-up/Referrals: Sridhar Alvarado MD [Primary Care Provider] - <Sotero Reynolds MD - Last Filed: 08/14/24 18:57> Time of Disposition: 19:53 <Sotero Reynolds MD - Last Filed: 08/14/24 18:57> 19:53 <Gerson Walker MD - Last Filed: 08/14/24 21:00>
--- NOTE | 2024-08-14 19:10 | PC.NURSE ---
report to kristyn ochoa
[2024-08-14 19:15] LABS: Hematocrit 28.2 % (35.0-49.0); Hemoglobin 8.9 g/dL (12.0-15.0); Mean Corpuscular HGB Conc 31.6 g/dL (32-36); Mean Corpuscular Hemoglobin 27.3 pg (27.0-31.0); Mean Corpuscular Volume 86.5 fL (78.0-102.0); Platelet Count Result 199 K/mm3 (150-420); Red Blood Count 3.26 M/mm3 (4.20-5.40); Red Cell Distribution Width 14.4 % (11.6-14.4); White Blood Count 3.3 K/mm3 (4.8-10.8)
[2024-08-14 19:25] LABS: Band Neutrophils Percent 0 % (0-6); Basophils Percent Manual 0 % (0-1); Eosinophils Absolute Manual 0.06 K/mm3 (0.02-0.50); Eosinophils Percent Manual 2 % (1-6); Lymphocytes Absolute Manual 1.18 K/mm3 (1.1-4.5); Lymphocytes Percent Manual 36 % (18-44); Monocytes Absolute Manual 0.26 K/mm3 (0.1-0.90); Monocytes Percent Manual 8 % (3-9); Neutrophils Absolute Manual 1.78 K/mm3 (1.3-6.7); Neutrophils Percent Manual 54 % (46-73)
[2024-08-14 19:26] LABS: Platelet Estimate Adequate (Adequate)
[2024-08-14 19:27] LABS: Lactic Acid Reflex 0.8 mmol/L (0.4-2.0)
[2024-08-14 19:29] LABS: Alanine Aminotransferase 65 U/L (6-35); Albumin Level 3.8 g/dL (3.5-5.1); Alkaline Phosphatase 107 U/L (38-126); Anion Gap 2 mmol/L (4-12); Aspartate Amino Transferase 76 U/L (14-36); Bilirubin,Total 0.5 mg/dL (0.2-1.3); Blood Urea Nitrogen 11 mg/dL (7-17); CRP > 9.0 mg/dL (<1.0); Calcium 8.2 mg/dL (8.4-10.2); Carbon Dioxide 31 mmol/L (22-30); Chloride 105 mmol/L (98-107); Estimated CRCL calculation 122 ml/min; Estimated Glomerular Filt Rate > 60; Glucose 88 mg/dL (65-110); Osmolality Calculated 284 mOsm/kg (285-295); Potassium 3.9 mmol/L (3.4-5.0); Sodium 138 mmol/L (137-145); Total Protein 7.2 g/dL (6.3-8.2)
[2024-08-14] MEDS: SULFAMETHOXAZOLE/TRIMETHOPRIM 800/160 MG DS TABLET 2 TAB PO (20:23)
[2024-08-14 20:34] VITALS: BP 121/70; PULSE 88; RESP 16; TEMP 36.6; O2SAT 98
--- NOTE | 2024-08-15 | CONSULT_PTH ---
PATIENT: Nadia Rajan LOC: [facility] U#:[id number] AGE/SX: 29/F ROOM: RE08/14/[address]: Gerson Walker MD : 1995 BED: DIS: 08/14/2024 SPEC #: [id number] RECD: 08/15/24 06:46 STATUS: KERLINE REQ #: [id number] NELLI: 08/15/24 00:[address]: Gerson Walker DEPT: [facility] Consult RECD BY: Blanca George MLT, ([facility]) ENTERED: 08/15/24 06:46 SP TYPE: Consult OTHR DR: Sridhar Alvarado MD Tissues: A - Peripheral Smear Procedures: Hematology Consult
--- NOTE | 2024-08-17 12:39 | PC.NURSE ---
PRELIMINARY BLOOD CULTURE NO GROWTH TO DATE
--- NOTE | 2024-08-19 14:05 | PC.NURSE ---
preliminary blood cultures x2 reviewed. no growth to date
--- NOTE | 2024-08-21 12:57 | PC.NURSE ---
blood culture, no growth 5 days
--- NOTE | 2024-08-23 14:43 | PC.NURSE ---
final blood cultures x2 reviewed. no growth after 5 days. no change in plan of care.
== END 2024-08-14 20:34 | disposition home or self-care (01) ==
PROVIDERS: Emergency Medicine; Emergency Provider Emergency Medicine; PCP Internal Medicine
DX: L03.116 Cellulitis of left lower limb (principal); R60.0 Localized edema; F17.210 Nicotine dependence, cigarettes, uncomplicated
CPT/HCPCS: 36415; 80053; 83605; 85025; 86140; 87040; 99283; A9270

== ENCOUNTER 2024-10-15 17:38 | Emergency (ER) | payer OTHER, SELFPAY ==
[2024-10-15 17:38] VITALS: BP 108/59; PULSE 102; RESP 18; TEMP 36.9; O2SAT 100
--- NOTE | 2024-10-15 17:53 | ED_ITS ---
HPI - Extremity Injury (Lower) General Chief Complaint: Extremity Injury, Lower Stated Complaint: right foot pain Time Seen by Provider: 10/15/24 17:39 Source: patient Mode of arrival: ambulatory Limitations: no limitations History of Present Illness HPI Narrative: Patient is a 29-year-old female who came to the ER not too long ago in the past month for bilateral lower extremity swelling and infection with cellulitis but did not take medicine. Patient was given Bactrim and lost the prescription. Today, she is here for the same complaint and wanted a medication refill of the antibiotic and be seen again at this time. complaint: leg injury ( Bilateral lower extremity swelling and erythema /redness for the past month and noncompliant with antibiotics) Onset (ago): month(s) ( 1) Type of Injury: unknown Place: home and street/outdoors Severity: moderate Severity scale (1-10): 3 Relieving factors: nothing Exacerbating factors: movement and palpation Context: other ( patient has bilateral lower extremity swelling and erythema/ redness over the past month with continued issue with noncompliance of antibiotics last visit) Associated symptoms: swelling and ambulatory Other symptoms: none Treatments prior to arrival: other ( none) Related Data Home Medications ?Medication ?Instructions ?Recorded ?Confirmed ?Last Taken ?Type norgestimate 0.25 mg-ethinyl tablet 07/29/22 Unknown History estradiol 0.035 mg tablet (Estarylla) Allergies Allergy/AdvReac Type Severity Reaction Status Date / Time Penicillins Allergy Unknown unknown Verified 10/15/24 17:49 Review of Systems Review of Systems: All systems reviewed & are unremarkable except as noted in HPI and below Constitutional: Constitutional: Reports no additional constitutional complaints Eyes: Eyes: Reports no additional eye complaints ENT: Reports system reviewed and no additional complaints, except as documented Cardiovascular: Cardiovascular: Reports no additional cardiovascular complaints Respiratory: Respiratory: Reports no additional respiratory complaints Gastrointestinal: Gastrointestinal: Reports no additional gastrointestinal complaints Genitourinary: Genitourinary: Reports no additional female genitourinary complaints Musculoskeletal: Musculoskeletal: Reports no additional musculoskeletal complaints Integumentary/Breasts: Skin/Breast: Reports system reviewed and no additional complaints, except as docu Neurologic: Reports system reviewed and no additional complaints, except as documented Psychiatric: Psychiatric: Reports no additional psychiatric complaints Endocrine: Endocrine: Reports no additional endocrine complaints Hematologic/Lymphatic: Hematologic/Lymphatic: Reports no additional hematologic/lymphatic complaints Allergic/Immunologic: Allergic/Immunologic: Reports no additional allergic/immunologic complaints PMFSH Past Medical History Medical History Laceration of forearm, left BV (bacterial vaginosis) STD exposure UTI (urinary tract infection) Opiate addiction Social History Social History Smoking status: Current every day smoker Tobacco type: cigarettes Second hand tobacco smoke exposure: Yes Exam Const: General: healthy appearing Nutritional Appearance: well nourished Orientation/consciousness: patient oriented x3 HENMT: Head: normal to inspection Ears: external ears normal Face/Nose/Sinus: Normal external nose present Eyes: Conjunctivae: conjunctivae normal Pupils: Equal, round and reactive pupils present EOM: EOMs intact bilaterally Neck: Neck: normal visual inspection, no lymphadenopathy and no meningeal signs Chest: Chest palpation & inspection: normal inspection of the chest Resp: Effort & Inspection: normal respiratory effort Auscultation: clear to auscultation bilaterally, no crackles, no rales and no rhonchi Cardio: Rate: regular rate Rhythm: regular rhythm Heart sounds: no murmurs GI: Inspection: non-distended GI Palp: Yes Soft to palpation and No Tenderness to palpation present (GI) Auscultation: normal bowel sounds : General: Yes bladder normal to palpation Back/Spine/Pelvis: Back: no CVA tenderness Skin: General skin exam: No normal color Rashes: rash noted Wounds: no wounds Other: right greater than left lower extremity has swelling roughly 2+ pitting edema with erythema/ redness from the ankle to mid lower leg; this is somewhat circumferential but not completely; wells criteria score is negative for DVT suggestion and in fact it would be a negative score and much less likely to be DVT versus cellulitis Neuro: General: patient oriented x3, moves all extremities and no meningeal signs Cranial nerves: Yes Nystagmus not present Speech: normal speech Gait exam (Neuro): Normal gait present Extrem: General: normal to inspection, no clubbing, cyanosis or edema and no pedal edema Psych: Mental Status: mental status grossly normal Affect: normal affect Attitude: cooperative Course Vital Signs Vital signs: Vital Signs Temperature 36.9 C 10/15/24 17:38 Pulse Rate 102 H 10/15/24 17:38 Respiratory Rate 18 10/15/24 17:38 Blood Pressure 108/59 L 10/15/24 17:38 Pulse Oximetry 100 10/15/24 17:38 Oxygen Delivery Room Air 10/15/24 17:38 Temperature 36.9 C 10/15/24 17:38 Pulse Rate 102 H 10/15/24 17:38 Respiratory Rate 18 10/15/24 17:38 Blood Pressure 108/59 L 10/15/24 17:38 Pulse Oximetry 100 10/15/24 17:38 Oxygen Delivery Room Air 10/15/24 17:38 MDM - Extremity Injury (Lower) MDM Narrative Medical decision making narrative: patient is a 29-year-old female with a left lower extremity pain for the past month with redness and swelling. We will restart Bactrim which was never taken initially as she lost the prescription. We will give her a dose tonight. Discharge Plan Discharge Clinical Impression: Cellulitis of lower leg Patient Disposition: Home Condition: Stable Instructions: Antibiotic Form, Cellulitis (ED) Patient Language: Malagasy Prescriptions: New sulfamethoxazole-trimethoprim [Bactrim DS] 800-160 mg tablet 1 tablet PO BID 7 Days Qty: 14 0RF No Action sulfamethoxazole-trimethoprim [Bactrim DS] 800-160 mg tablet 1 tablet PO BID 10 Days Qty: 20 0RF norgestimate-ethinyl estradiol [Estarylla] 0.25-35 mg-mcg tablet sulfamethoxazole-trimethoprim [Bactrim DS] 800-160 mg tablet 2 tablet PO BID Qty: 28 0RF Follow-up/Referrals: UNKNOWN,DOCTOR [Non-Staff] Time of Disposition: 18:31
[2024-10-15] MEDS: SULFAMETHOXAZOLE/TRIMETHOPRIM 800/160 MG DS TABLET 2 TAB PO (18:38)
== END 2024-10-15 18:39 | disposition home or self-care (01) ==
PROVIDERS: Emergency Provider Emergency Medicine; Referring Provider Internal Medicine
DX: L03.116 Cellulitis of left lower limb (principal); F17.210 Nicotine dependence, cigarettes, uncomplicated
CPT/HCPCS: 99283; A9270